=== PATIENT | male | born 1940 | race Caucasian/White ===

== ENCOUNTER → 2016-12-04 | Outpatient (CLI) | payer OTHER ==
[~2016-12-04] MED LIST: CLARITIN10 MG PO; DOXYCYCLINE100 M3 PO; LANTUS100 U/ML SC; MERREM IV1 GM IV; METFORMIN500 MG PO; NATURE'S BLEND F1 MG PO; ZITHROMAX Z PA250 MG PO; [UNRECOGNIZED DRUG - OTHER] PO
== END | disposition home or self-care (01) ==
LOC: LAB 14:33 → US 15:00
DX: N18.3 Chronic kidney disease, stage 3 (moderate) (principal)

== ENCOUNTER → 2016-12-06 | Outpatient (CLI) | payer OTHER | END | disposition home or self-care (01) | LOC: LAB 09:27 | DX: N18.3 Chronic kidney disease, stage 3 (moderate) (principal) ==

== ENCOUNTER → 2017-03-27 | Outpatient (CLI) | payer OTHER | END | disposition home or self-care (01) | LOC: RAD 10:25 | DX: J18.9 Pneumonia, unspecified organism (principal); R91.8 Other nonspecific abnormal finding of lung field; E11.9 Type 2 diabetes mellitus without complications; F17.200 Nicotine dependence, unspecified, uncomplicated ==

== ENCOUNTER → 2021-11-28 | Outpatient (CLI) | payer MEDICARE ==
[2021-11-28 16:19] LABS: CREATININE 1.88 mg/dL (0.70-1.30); POTASSIUM 4.8 mmol/L (3.5-5.1)
== END | disposition home or self-care (01) ==
LOC: LAB 15:18
PROVIDERS: ATTEND Internal Medicine
DX: U07.1 COVID-19 (principal)

== ENCOUNTER 2022-05-18 19:16 | Inpatient (IN) | payer MEDICARE ==
[2022-05-18] VITALS (7 sets, daily range): BP systolic 103–141; BP diastolic 54–76
[~2022-05-18] VITALS: Ht 175.2 cm; Wt 84.1 kg
[2022-05-18 19:37] LABS: BASO # 0.1 10*3/uL (0.0-0.1); EOS # 0.3 10*3/uL (0.0-0.4); EOS % 2.3 % (1.0-4.0); HEMATOCRIT 39.1 % (42.0-52.0); LYMPH # 1.9 10*3/uL (1.3-4.4); LYMPH % 15.6 % (27.0-41.0); MEAN CELL VOLUME 86.7 fl (80.0-94.0); MEAN CORPUSCULAR HGB 28.4 pg (27.0-31.0); MEAN CORPUSCULAR HGB CONC 32.7 g/dl (33.0-37.0); MEAN PLATELET VOLUME 10.5 fl (9.6-12.3); MONO # 1.1 10*3/uL (0.1-1.0); MONO % 8.8 % (3.0-9.0); NEUT # 8.9 10*3/uL (2.3-7.9); NEUT % 71.9 % (47.0-73.0); PLATELET COUNT AUTOMATED 178 10*3/uL (130-400); RED BLOOD COUNT 4.51 10*6/uL (4.50-5.90); RED CELL DISTRI WIDTH 13.9 % (0-14.5); WHITE BLOOD COUNT 12.4 10*3/uL (4.8-10.8)
[2022-05-18 19:54] LABS: POTASSIUM 4.2 mmol/L (3.4-5.1); TOTAL PROTEIN 6.7 gm/dL (6.0-8.0)
[2022-05-19] VITALS (19 sets, daily range): BP systolic 75–128; BP diastolic 38–72
[2022-05-19 06:07] LABS: BASO # 0.1 10*3/uL (0.0-0.1); BASO % 0.6 % (0.0-1.0); EOS # 0.1 10*3/uL (0.0-0.4); EOS % 0.7 % (1.0-4.0); LYMPH # 1.4 10*3/uL (1.3-4.4); LYMPH % 13.8 % (27.0-41.0); MEAN CELL VOLUME 87.5 fl (80.0-94.0); MEAN CORPUSCULAR HGB 28.1 pg (27.0-31.0); MEAN CORPUSCULAR HGB CONC 32.2 g/dl (33.0-37.0); MEAN PLATELET VOLUME 10.4 fl (9.6-12.3); MONO # 0.6 10*3/uL (0.1-1.0); MONO % 6.2 % (3.0-9.0); NEUT # 7.6 10*3/uL (2.3-7.9); NEUT % 78.2 % (47.0-73.0); PLATELET COUNT AUTOMATED 152 10*3/uL (130-400); RED BLOOD COUNT 4.23 10*6/uL (4.50-5.90); RED CELL DISTRI WIDTH 14.2 % (0-14.5); WHITE BLOOD COUNT 9.8 10*3/uL (4.8-10.8)
[2022-05-19 06:14] LABS: POTASSIUM 5.1 mmol/L (3.4-5.1); THYROID STIM HORMONE (HS) 0.998 uIU/ml (0.550-4.780); TOTAL PROTEIN 5.9 gm/dL (6.0-8.0)
[2022-05-19 07:42] LABS: VITAMIN D, 25-HYDROXY 28.1 ng/mL (30-100)
[2022-05-19] MEDS ORDERED: LYRICA50 M1 PO (09:16)
[2022-05-19] MEDS ORDERED: CITALOPRAM20 MG PO (09:17)
[2022-05-19] MEDS ORDERED: TRULICITY1.5 MG/0.5 SC (10:35)
[2022-05-19] MEDS ORDERED: LISINOPRIL5 MG PO (10:36)
[2022-05-20] VITALS: BP 99/57
[2022-05-20 03:54] VITALS: BP 106/50
[2022-05-20 05:54] LABS: POTASSIUM 4.9 mmol/L (3.4-5.1)
[2022-05-20 06:34] LABS: BASO % 0.4 % (0.0-1.0); EOS # 0.1 10*3/uL (0.0-0.4); EOS % 0.7 % (1.0-4.0); LYMPH # 1.6 10*3/uL (1.3-4.4); LYMPH % 15.2 % (27.0-41.0); MEAN CELL VOLUME 89.6 fl (80.0-94.0); MEAN CORPUSCULAR HGB 27.9 pg (27.0-31.0); MEAN CORPUSCULAR HGB CONC 31.1 g/dl (33.0-37.0); MEAN PLATELET VOLUME 11.2 fl (9.6-12.3); MONO # 1.2 10*3/uL (0.1-1.0); MONO % 10.8 % (3.0-9.0); NEUT # 7.8 10*3/uL (2.3-7.9); NEUT % 72.4 % (47.0-73.0); PLATELET COUNT AUTOMATED 139 10*3/uL (130-400); RED BLOOD COUNT 4.02 10*6/uL (4.50-5.90); RED CELL DISTRI WIDTH 14.4 % (0-14.5); WHITE BLOOD COUNT 10.7 10*3/uL (4.8-10.8)
[2022-05-20 08:00] VITALS: BP 117/57
[2022-05-20 12:00] VITALS: BP 99/56
== END 2022-05-20 12:13 | disposition short-term general hospital (02) | DRG 281 ==
LOC: ED 19:16 → 5E 22:08 → EDHOLD 22:08 → 5E 05-19 00:11 → EDHOLD 05-19 00:11 → ICCU 05-19 09:24 → 5E 05-19 15:37
PROVIDERS: Internal Medicine; Student in an Organized Health Care Education/Training Program; ADMIT Internal Medicine; ATTEND Internal Medicine
DX: I21.4 Non-ST elevation (NSTEMI) myocardial infarction (principal); F33.9 Major depressive disorder, recurrent, unspecified; N17.9 Acute kidney failure, unspecified; N18.9 Chronic kidney disease, unspecified; E11.42 Type 2 diabetes mellitus with diabetic polyneuropathy; Z66 Do not resuscitate; D72.829 Elevated white blood cell count, unspecified; D64.9 Anemia, unspecified; E66.9 Obesity, unspecified; E87.8 Other disorders of electrolyte and fluid balance, not elsewhere classified; E11.65 Type 2 diabetes mellitus with hyperglycemia; I95.9 Hypotension, unspecified; Z88.0 Allergy status to penicillin; Z88.8 Allergy status to other drugs, medicaments and biological substances; Z80.8 Family history of malignant neoplasm of other organs or systems; Z80.6 Family history of leukemia; Z68.27 Body mass index [BMI] 27.0-27.9, adult; E78.00 Pure hypercholesterolemia, unspecified

== ENCOUNTER → 2022-05-27 | Outpatient (CLI) | payer MEDICARE ==
[~2022-05-27] MED LIST changes: +CITALOPRAM20 MG PO; +LISINOPRIL5 MG PO; +LYRICA50 M1 PO; +TRULICITY1.5 MG/0.5 SC
[2022-05-27 13:16] LABS: FREE T4 1.17 ng/dl (0.89-1.76); POTASSIUM 4.5 mmol/L (3.4-5.1); THYROID STIM HORMONE (HS) 2.626 uIU/ml (0.550-4.780); TOTAL PROTEIN 5.9 gm/dL (6.0-8.0)
== END | disposition home or self-care (01) ==
LOC: LAB 12:09
PROVIDERS: ATTEND Internal Medicine
DX: E11.22 Type 2 diabetes mellitus with diabetic chronic kidney disease (principal); N18.31 Chronic kidney disease, stage 3a; E11.65 Type 2 diabetes mellitus with hyperglycemia; R91.1 Solitary pulmonary nodule; J43.9 Emphysema, unspecified; I25.5 Ischemic cardiomyopathy; R06.02 Shortness of breath

== ENCOUNTER → 2022-06-24 | Outpatient (CLI) | payer MEDICARE | END | disposition home or self-care (01) | LOC: US 00:15 | PROVIDERS: ATTEND Internal Medicine | DX: N18.31 Chronic kidney disease, stage 3a (principal); N32.89 Other specified disorders of bladder ==

== ENCOUNTER 2023-01-02 14:55 | Emergency (ER) | payer MEDICARE ==
[~2023-01-02] VITALS: Ht 175.2 cm; Wt 82.6 kg
[2023-01-02 15:41] LABS: BASO # 0.1 10*3/uL (0.0-0.1); BASO % 0.6 % (0.0-1.0); EOS % 0.3 % (1.0-4.0); HEMATOCRIT 32.9 % (42.0-52.0); LYMPH # 0.6 10*3/uL (1.3-4.4); LYMPH % 7.1 % (27.0-41.0); MEAN CELL VOLUME 90.4 fl (80.0-94.0); MEAN CORPUSCULAR HGB 29.7 pg (27.0-31.0); MEAN CORPUSCULAR HGB CONC 32.8 g/dl (33.0-37.0); MONO # 0.4 10*3/uL (0.1-1.0); MONO % 4.2 % (3.0-9.0); NEUT # 7.6 10*3/uL (2.3-7.9); PLATELET COUNT AUTOMATED 178 10*3/uL (130-400); RED BLOOD COUNT 3.64 10*6/uL (4.50-5.90); RED CELL DISTRI WIDTH 14.7 % (0-14.5); WHITE BLOOD COUNT 8.7 10*3/uL (4.8-10.8)
[2023-01-02 16:05] LABS: POTASSIUM 4.8 mmol/L (3.4-5.1); TOTAL PROTEIN 6.6 gm/dL (6.0-8.0)
[2023-01-02] MEDS ORDERED: MECLIZINE HYD12.5 MG PO (19:12)
[2023-01-02] MEDS ORDERED: PREDNISONE20 M1 PO (19:12)
== END 2023-01-02 19:25 | disposition home or self-care (01) ==
LOC: ED 14:55
PROVIDERS: Family Medicine
DX: H81.10 Benign paroxysmal vertigo, unspecified ear (principal); H93.3X3 Disorders of bilateral acoustic nerves; E11.9 Type 2 diabetes mellitus without complications; I25.2 Old myocardial infarction; J44.9 Chronic obstructive pulmonary disease, unspecified; Z88.0 Allergy status to penicillin; Z88.8 Allergy status to other drugs, medicaments and biological substances; Z87.891 Personal history of nicotine dependence

== ENCOUNTER 2023-06-24 16:21 | Emergency (ER) | payer MEDICARE ==
[~2023-06-24] VITALS: Ht 175.2 cm; Wt 80.3 kg
[~2023-06-24 16:21] MED LIST changes: +MECLIZINE HYD12.5 MG PO; +PREDNISONE20 M1 PO
[2023-06-24 17:41] LABS: BILIRUBIN Negative (Negative); BLOOD 2+ (Negative); CLARITY Turbid (Clear); COLOR Yellow (Yellow); GLUCOSE Negative (Negative); KETONE Trace (Negative); LEUKO ESTERASE 3+ (Negative); NITRITE Positive (Negative); PH 5.5 (4.5-8.0); SPECIFIC GRAVITY 1.015 (1.001-1.030)
[2023-06-24 17:47] LABS: WBC TNTC wbc/hpf (0-5)
[2023-06-24 18:03] LABS: POTASSIUM 4.5 mmol/L (3.4-5.1); TOTAL PROTEIN 6.4 gm/dL (6.0-8.0)
[2023-06-24 18:04] LABS: BASO # 0.1 10*3/uL (0.0-0.1); BASO % 0.5 % (0.0-1.0); EOS # 0.1 10*3/uL (0.0-0.4); EOS % 0.4 % (1.0-4.0); HEMATOCRIT 33.2 % (42.0-52.0); LYMPH # 1.6 10*3/uL (1.3-4.4); LYMPH % 9.2 % (27.0-41.0); MEAN CELL VOLUME 90.7 fl (80.0-94.0); MEAN CORPUSCULAR HGB 28.7 pg (27.0-31.0); MEAN CORPUSCULAR HGB CONC 31.6 g/dl (33.0-37.0); MEAN PLATELET VOLUME 10.4 fl (9.6-12.3); MONO # 1.3 10*3/uL (0.1-1.0); MONO % 7.2 % (3.0-9.0); NEUT # 14.5 10*3/uL (2.3-7.9); NEUT % 82.4 % (47.0-73.0); PLATELET COUNT AUTOMATED 151 10*3/uL (130-400); RED BLOOD COUNT 3.66 10*6/uL (4.50-5.90); RED CELL DISTRI WIDTH 14.7 % (0-14.5); WHITE BLOOD COUNT 17.6 10*3/uL (4.8-10.8)
[2023-06-24] MEDS ORDERED: SEPTDS PO (18:14)
[2023-06-24] MEDS ORDERED: Sulfamethoxazole/Trimethopri 1 TAB TAB PO ONE (18:15)
== END 2023-06-24 18:31 | disposition home or self-care (01) ==
LOC: ED 16:21
PROVIDERS: Physician Assistant Medical
DX: N39.0 Urinary tract infection, site not specified (principal); E11.9 Type 2 diabetes mellitus without complications; I25.2 Old myocardial infarction; J44.9 Chronic obstructive pulmonary disease, unspecified; Z88.0 Allergy status to penicillin; Z88.8 Allergy status to other drugs, medicaments and biological substances; Z98.890 Other specified postprocedural states; Z87.891 Personal history of nicotine dependence

== ENCOUNTER → 2023-07-15 | Outpatient (CLI) | payer MEDICARE ==
[~2023-07-15] MED LIST changes: +ALBUTEROL HFA 90MCG; +ASPIRIN ADULT L81 M1 PO; +ATORVASTATIN CA40 M1 PO; +BASAG SOL SQ; +CEFUROXIME AXE500 MG PO; +CITALOPRAM40 MG PO; +DEXCOM G7 SENS1 EACH MC; +FEROSUL325 M1 PO; +IMDUR SA30 MG PO; +METOPROLOL SUCC25 M2 PO; +PIOGLITAZONE HC30 MG PO; +PREGABALIN50 MG PO; +SEPTDS PO; +TRELEGY ELLIPT1 EACH INH; +ZESTRIL,PRINIVIL5 MG PO
== END | disposition home or self-care (01) ==
LOC: US 03:17
PROVIDERS: ATTEND Internal Medicine
DX: N32.89 Other specified disorders of bladder (principal); N30.01 Acute cystitis with hematuria; J90 Pleural effusion, not elsewhere classified; Z96.0 Presence of urogenital implants

== ENCOUNTER 2023-07-17 13:27 | Inpatient (IN) | payer MEDICARE ==
[~2023-07-17] VITALS: Ht 175.3 cm; Wt 86.6 kg
[~2023-07-17 13:27] MED LIST changes: -ALBUTEROL HFA 90MCG; -ASPIRIN ADULT L81 M1 PO; -ATORVASTATIN CA40 M1 PO; -BASAG SOL SQ; -CEFUROXIME AXE500 MG PO; -CITALOPRAM40 MG PO; -DEXCOM G7 SENS1 EACH MC; -FEROSUL325 M1 PO; -IMDUR SA30 MG PO; -METOPROLOL SUCC25 M2 PO; -PIOGLITAZONE HC30 MG PO; -PREGABALIN50 MG PO; -TRELEGY ELLIPT1 EACH INH; -ZESTRIL,PRINIVIL5 MG PO
[2023-07-17 13:50] VITALS: BP 121/51
[2023-07-17 14:07] LABS: BILIRUBIN Negative (Negative); BLOOD 2+ (Negative); CLARITY Turbid (Clear); COLOR Yellow (Yellow); GLUCOSE Negative (Negative); KETONE Negative (Negative); LEUKO ESTERASE 3+ (Negative); NITRITE Positive (Negative); PH 5.5 (4.5-8.0); UROBILINOGEN 0.2 E.U./dl (0.0-1.0)
[2023-07-17 14:18] LABS: BACTERIA 3+; WBC TNTC wbc/hpf (0-5)
[2023-07-17] MEDS ORDERED: Cefepime Hydrochloride 1 GM in SODIUM CHLORIDE 0.9% 50 ML IV ONE (14:29)
[2023-07-17 14:30] VITALS: BP 126/54
[2023-07-17 14:35] LABS: BASO # 0.1 10*3/uL (0.0-0.1); BASO % 0.8 % (0.0-1.0); EOS # 0.3 10*3/uL (0.0-0.4); EOS % 3.1 % (1.0-4.0); HEMATOCRIT 32.2 % (42.0-52.0); LYMPH # 1.7 10*3/uL (1.3-4.4); LYMPH % 19.9 % (27.0-41.0); MEAN CELL VOLUME 91.2 fl (80.0-94.0); MEAN CORPUSCULAR HGB 28.3 pg (27.0-31.0); MEAN CORPUSCULAR HGB CONC 31.1 g/dl (33.0-37.0); MEAN PLATELET VOLUME 10.2 fl (9.6-12.3); MONO # 0.9 10*3/uL (0.1-1.0); MONO % 10.3 % (3.0-9.0); NEUT # 5.4 10*3/uL (2.3-7.9); NEUT % 65.1 % (47.0-73.0); PLATELET COUNT AUTOMATED 191 10*3/uL (130-400); RED BLOOD COUNT 3.53 10*6/uL (4.50-5.90); RED CELL DISTRI WIDTH 15.8 % (0-14.5); WHITE BLOOD COUNT 8.3 10*3/uL (4.8-10.8)
[2023-07-17 14:59] LABS: POTASSIUM 4.3 mmol/L (3.4-5.1)
[2023-07-17] MEDS ORDERED: SODIUM CHLORIDE 0.9% 1,000 ML IV ONE (16:05)
[2023-07-17] MEDS ORDERED: PREGABALIN50 MG PO (16:21)
[2023-07-17] MEDS ORDERED: CEFUROXIME AXE500 MG PO (16:21)
[2023-07-17] MEDS ORDERED: BASAG SOL SQ (16:21)
[2023-07-17] MEDS ORDERED: DEXCOM G7 SENS1 EACH MC (16:22)
[2023-07-17] MEDS ORDERED: IMDUR SA30 MG PO (16:23)
[2023-07-17] MEDS ORDERED: METOPROLOL SUCC25 M2 PO (16:23)
[2023-07-17] MEDS ORDERED: ASPIRIN ADULT L81 M1 PO (16:23)
[2023-07-17] MEDS ORDERED: ATORVASTATIN CA40 M1 PO (16:24)
[2023-07-17] MEDS ORDERED: PIOGLITAZONE HC30 MG PO (16:24)
[2023-07-17] MEDS ORDERED: CITALOPRAM40 MG PO (16:25)
[2023-07-17] MEDS ORDERED: FEROSUL325 M1 PO (16:25)
[2023-07-17] MEDS ORDERED: ALBUTEROL HFA 90MCG (16:26)
[2023-07-17] MEDS ORDERED: ZESTRIL,PRINIVIL5 MG PO (16:29)
[2023-07-17] MEDS ORDERED: TRELEGY ELLIPT1 EACH INH (16:29)
[2023-07-17 16:50] VITALS: BP 125/57
[2023-07-17] MEDS ORDERED: FERROUS SULFATE 325 MG TAB PO ONE (16:55)
[2023-07-17] MEDS ORDERED: CITALOPRAM 20 MG TAB PO ONE (16:55)
[2023-07-17] MEDS ORDERED: Albuterol Sulf/Ipratropium 3 ML VIAL NEB SCH (17:00)
[2023-07-17] MEDS ORDERED: ATORVASTATIN CALCIUM 40 MG TABLET PO SCH (18:00)
[2023-07-17 20:00] VITALS: BP 129/71
[2023-07-17 20:10] VITALS: BP 129/71
[2023-07-17] MEDS ORDERED: METOPROLOL SUCCINATE XR 25 MG TAB PO SCH (22:00)
[2023-07-17] MEDS ORDERED: Insulin Glargine, Recombinan 1 UNIT/0.01 ML SC SCH (22:00)
[2023-07-17] MEDS ORDERED: HEPARIN SODIUM 5,000 UNIT/ML VIAL SC SCH (22:00)
[2023-07-17] MEDS ORDERED: PREGABALIN 50 MG CAP PO SCH (22:00)
[2023-07-18] VITALS: BP 124/57
[2023-07-18] MEDS ORDERED: Cefepime Hydrochloride 2 GM in SODIUM CHLORIDE 0.9% 50 ML IV SCH (06:00)
[2023-07-18 08:00] VITALS: BP 129/61
[2023-07-18] MEDS ORDERED: Pioglitazone Hydrochloride 15 MG TAB PO SCH (10:00)
[2023-07-18] MEDS ORDERED: LISINOPRIL 5 MG TAB PO SCH (10:00)
[2023-07-18] MEDS ORDERED: ISOSORBIDE MONONITRATE 30 MG TAB PO SCH (10:00)
[2023-07-18] MEDS ORDERED: ASPIRIN, CHEWABLE 81 MG TAB PO SCH (10:00)
[2023-07-18 12:00] VITALS: BP 124/54
[2023-07-18 16:00] VITALS: BP 98/50
[2023-07-18 16:21] LABS: URINE CREATININE RANDOM 71.71 mg/dL
[2023-07-18 20:00] VITALS: BP 98/52
[2023-07-19] VITALS: BP 98/45
[2023-07-19] MEDS ORDERED: Ceftriaxone Sodium 2 GM in SYRINGE INFUSION 20 ML IV SCH
[2023-07-19 06:14] LABS: POTASSIUM 4.3 mmol/L (3.4-5.1); TOTAL PROTEIN 5.5 gm/dL (6.0-8.0)
[2023-07-19 06:31] LABS: BASO # 0.1 10*3/uL (0.0-0.1); BASO % 0.8 % (0.0-1.0); EOS # 0.3 10*3/uL (0.0-0.4); EOS % 4.2 % (1.0-4.0); LYMPH # 1.8 10*3/uL (1.3-4.4); LYMPH % 24.3 % (27.0-41.0); MEAN CELL VOLUME 90.3 fl (80.0-94.0); MEAN PLATELET VOLUME 10.8 fl (9.6-12.3); MONO # 0.8 10*3/uL (0.1-1.0); MONO % 10.3 % (3.0-9.0); NEUT # 4.5 10*3/uL (2.3-7.9); NEUT % 59.6 % (47.0-73.0); PLATELET COUNT AUTOMATED 167 10*3/uL (130-400); RED BLOOD COUNT 3.21 10*6/uL (4.50-5.90); RED CELL DISTRI WIDTH 15.9 % (0-14.5); WHITE BLOOD COUNT 7.5 10*3/uL (4.8-10.8)
[2023-07-19 08:00] VITALS: BP 110/40
[2023-07-19] MEDS ORDERED: SODIUM CHLORIDE 0.9% 50 ML BAG IV ONE (09:01)
[2023-07-19 12:00] VITALS: BP 148/50
[2023-07-19 16:00] VITALS: BP 112/50
[2023-07-19] MEDS ORDERED: SODIUM CHLORIDE 0.9% 500 ML IV ONE (17:30)
[2023-07-19] MEDS ORDERED: [UNRECOGNIZED DRUG - OTHER] IV (18:38)
[2023-07-19 20:00] VITALS: BP 108/38
[2023-07-20] VITALS: BP 98/35
[2023-07-20 08:00] VITALS: BP 145/45
[2023-07-20 12:00] VITALS: BP 125/60
[2023-07-20 14:53] LABS: POTASSIUM 5.1 mmol/L (3.4-5.1)
[2023-07-20 16:00] VITALS: BP 106/41
[2023-07-20 20:00] VITALS: BP 131/57
[2023-07-21] VITALS: BP 104/42
[2023-07-21 06:44] LABS: BASO # 0.1 10*3/uL (0.0-0.1); BASO % 0.5 % (0.0-1.0); EOS # 0.5 10*3/uL (0.0-0.4); EOS % 5.1 % (1.0-4.0); HEMATOCRIT 28.2 % (42.0-52.0); LYMPH # 1.6 10*3/uL (1.3-4.4); LYMPH % 15.9 % (27.0-41.0); MEAN CORPUSCULAR HGB CONC 31.9 g/dl (33.0-37.0); MEAN PLATELET VOLUME 10.4 fl (9.6-12.3); MONO # 1.1 10*3/uL (0.1-1.0); NEUT # 6.8 10*3/uL (2.3-7.9); NEUT % 66.7 % (47.0-73.0); PLATELET COUNT AUTOMATED 146 10*3/uL (130-400); RED CELL DISTRI WIDTH 16.4 % (0-14.5); WHITE BLOOD COUNT 10.2 10*3/uL (4.8-10.8)
[2023-07-21 07:27] LABS: TOTAL PROTEIN 5.5 gm/dL (6.0-8.0)
[2023-07-21 08:00] VITALS: BP 110/80
[2023-07-21 12:00] VITALS: BP 104/56
[2023-07-21 16:00] VITALS: BP 106/45
[2023-07-21] MEDS ORDERED: VANCOMYCIN HCL 125 MG CAPSULE PO SCH (18:00)
[2023-07-21 20:00] VITALS: BP 132/54
[2023-07-22] VITALS: BP 103/45
[2023-07-22 08:00] VITALS: BP 114/46
[2023-07-22] MEDS ORDERED: VANCOMYCIN HCL125 MG PO (10:54)
[2023-07-22 12:00] VITALS: BP 150/45
[2023-07-22 13:31] LABS: POTASSIUM 4.8 mmol/L (3.4-5.1)
[2023-07-22] MEDS ORDERED: SODIUM CHLORIDE 0.9% 1,000 ML IV ONE (14:15)
[2023-07-22 16:00] VITALS: BP 113/49
[2023-07-22 20:00] VITALS: BP 125/54
[2023-07-23] VITALS: BP 114/47
[2023-07-23 08:00] VITALS: BP 123/85
[2023-07-23 12:00] VITALS: BP 111/54
[2023-07-23 12:27] LABS: POTASSIUM 4.5 mmol/L (3.4-5.1); TOTAL PROTEIN 5.8 gm/dL (6.0-8.0)
[2023-07-23] MEDS ORDERED: [UNRECOGNIZED DRUG - OTHER] IV (15:46)
== END 2023-07-23 20:01 | disposition home health service (06) | DRG 371 ==
LOC: ED 13:27 → 4E 16:06 → EDHOLD 16:06 → 5E 19:30 → 4E 20:00
PROVIDERS: Internal Medicine; Internal Medicine Nephrology; Nurse Practitioner; ADMIT Internal Medicine; ATTEND Internal Medicine
PROC: 02HV33Z Insertion of Infusion Device into Superior Vena Cava, Percutaneous Approach (ICD-10-PCS; principal; 2023-07-23)
PROC: B548ZZA Ultrasonography of Superior Vena Cava, Guidance (ICD-10-PCS; 2023-07-23)
DX: A04.72 Enterocolitis due to Clostridium difficile, not specified as recurrent (principal); N17.0 Acute kidney failure with tubular necrosis; N39.0 Urinary tract infection, site not specified; E44.0 Moderate protein-calorie malnutrition; Z16.24 Resistance to multiple antibiotics; N18.9 Chronic kidney disease, unspecified; E11.22 Type 2 diabetes mellitus with diabetic chronic kidney disease; B95.2 Enterococcus as the cause of diseases classified elsewhere; F32.A Depression, unspecified; E11.40 Type 2 diabetes mellitus with diabetic neuropathy, unspecified; E87.5 Hyperkalemia; Z79.4 Long term (current) use of insulin; Z88.0 Allergy status to penicillin; Z88.1 Allergy status to other antibiotic agents; Z79.899 Other long term (current) drug therapy; I25.2 Old myocardial infarction; Z87.891 Personal history of nicotine dependence; Z79.82 Long term (current) use of aspirin; Z80.8 Family history of malignant neoplasm of other organs or systems; Z68.28 Body mass index [BMI] 28.0-28.9, adult

== ENCOUNTER 2023-08-13 13:45 | Emergency (ER) | payer MEDICARE ==
[~2023-08-13] VITALS: Ht 175.2 cm; Wt 81.6 kg
[~2023-08-13 13:45] MED LIST changes: +ALBUTEROL HFA 90MCG; +ASPIRIN ADULT L81 M1 PO; +ATORVASTATIN CA40 M1 PO; +BASAG SOL SQ; +CEFUROXIME AXE500 MG PO; +CITALOPRAM40 MG PO; +DEXCOM G7 SENS1 EACH MC; +FEROSUL325 M1 PO; +IMDUR SA30 MG PO; +METOPROLOL SUCC25 M2 PO; +PIOGLITAZONE HC30 MG PO; +PREGABALIN50 MG PO; +TRELEGY ELLIPT1 EACH INH; +VANCOMYCIN HCL125 MG PO; +ZESTRIL,PRINIVIL5 MG PO; +[UNRECOGNIZED DRUG - OTHER] IV
[2023-08-13] MEDS ORDERED: SODIUM CHLORIDE 0.9% 1,000 ML IV ONE (14:25)
[2023-08-13] MEDS ORDERED: Meclizine Hydrochloride 25 MG TAB PO ONE (14:25)
[2023-08-13 14:35] LABS: BASO # 0.1 10*3/uL (0.0-0.1); BASO % 0.9 % (0.0-1.0); EOS # 0.3 10*3/uL (0.0-0.4); EOS % 3.2 % (1.0-4.0); HEMATOCRIT 31.1 % (42.0-52.0); LYMPH % 24.3 % (27.0-41.0); MEAN CELL VOLUME 89.9 fl (80.0-94.0); MEAN CORPUSCULAR HGB 28.9 pg (27.0-31.0); MEAN CORPUSCULAR HGB CONC 32.2 g/dl (33.0-37.0); MEAN PLATELET VOLUME 10.5 fl (9.6-12.3); MONO # 0.8 10*3/uL (0.1-1.0); NEUT % 61.1 % (47.0-73.0); PLATELET COUNT AUTOMATED 225 10*3/uL (130-400); RED BLOOD COUNT 3.46 10*6/uL (4.50-5.90); RED CELL DISTRI WIDTH 15.6 % (0-14.5); WHITE BLOOD COUNT 8.2 10*3/uL (4.8-10.8)
[2023-08-13 14:53] LABS: TOTAL PROTEIN 6.2 gm/dL (6.0-8.0)
[2023-08-13 15:37] LABS: BILIRUBIN Negative (Negative); BLOOD Trace-Lysed (Negative); CLARITY Clear (Clear); COLOR Yellow (Yellow); GLUCOSE Trace (Negative); KETONE Negative (Negative); LEUKO ESTERASE Negative (Negative); NITRITE Negative (Negative); PH 5.5 (4.5-8.0); SPECIFIC GRAVITY 1.015 (1.001-1.030); UROBILINOGEN 0.2 E.U./dl (0.0-1.0)
[2023-08-13 15:52] LABS: BACTERIA 2+; RBC 0-2 rbc/hpf (0-2)
[2023-08-13 15:53] LABS: EPITHELIAL CELLS 0-2
[2023-08-13] MEDS ORDERED: ANTIVERT25 M2 PO (16:17)
== END 2023-08-13 16:30 | disposition home or self-care (01) ==
LOC: ED 13:45
PROVIDERS: Nurse Practitioner Family
DX: R42 Dizziness and giddiness (principal); E11.22 Type 2 diabetes mellitus with diabetic chronic kidney disease; N18.9 Chronic kidney disease, unspecified; E11.40 Type 2 diabetes mellitus with diabetic neuropathy, unspecified; I25.2 Old myocardial infarction; E66.9 Obesity, unspecified; F32.A Depression, unspecified; Z87.891 Personal history of nicotine dependence; Z68.30 Body mass index [BMI] 30.0-30.9, adult; Z88.0 Allergy status to penicillin; Z88.1 Allergy status to other antibiotic agents; Z79.899 Other long term (current) drug therapy; Z79.2 Long term (current) use of antibiotics; Z79.82 Long term (current) use of aspirin; Z79.4 Long term (current) use of insulin

== ENCOUNTER 2023-08-28 21:33 | Inpatient (IN) | payer MEDICARE ==
[~2023-08-28] VITALS: Ht 177.8 cm; Wt 80.0 kg
[~2023-08-28 21:33] MED LIST changes: +ANTIVERT25 M2 PO
[2023-08-28 21:34] VITALS: BP 132/56
[2023-08-28] MEDS ORDERED: ACETAMINOPHEN 325 MG TAB PO ONE (21:45)
[2023-08-28 21:53] LABS: MEAN CELL VOLUME 91.9 fl (80.0-94.0); MEAN CORPUSCULAR HGB 29.2 pg (27.0-31.0); MEAN CORPUSCULAR HGB CONC 31.8 g/dl (33.0-37.0); MEAN PLATELET VOLUME 10.3 fl (9.6-12.3); PLATELET COUNT AUTOMATED 167 10*3/uL (130-400); RED BLOOD COUNT 3.59 10*6/uL (4.50-5.90); RED CELL DISTRI WIDTH 15.6 % (0-14.5); WHITE BLOOD COUNT 15.1 10*3/uL (4.8-10.8)
[2023-08-28 21:54] LABS: MANUAL DIFF REFLEX YES
[2023-08-28] MEDS ORDERED: SODIUM CHLORIDE 0.9% 1,000 ML IV SCH (22:00)
[2023-08-28 22:01] LABS: ACT PARTIAL THROMBO TIME 27.5 SECONDS (20.0-32.1)
[2023-08-28 22:09] LABS: ALKALINE PHOSPHATASE 70 U/L (46-116); BUN 27 mg/dl (9-23); CHLORIDE 107 mmol/L (98-107); CPK 65 U/L (34-171); ETHYL ALCOHOL < 3.0 mg/dl (<3); POTASSIUM 4.8 mmol/L (3.4-5.1); SGPT/ALT 8 U/L (5-49); TOTAL PROTEIN 6.1 gm/dL (6.0-8.0)
[2023-08-28 22:14] LABS: BASOPHILS 1 % (0-1); BURR CELLS FEW; OVALOCYTES FEW; PLATELET SUFFICIENCY NORMAL (NORMAL); TOTAL CELLS COUNTED 100 #CELLS
[2023-08-28] MEDS ORDERED: Ceftriaxone Sodium 1 GM/10 ML SYR IV ONE (22:40)
[2023-08-28] MEDS ORDERED: MAGNESIUM SULFATE 100 ML IV ONE (23:05)
[2023-08-28] MEDS ORDERED: SODIUM BICARBO650 MG PO (23:21)
[2023-08-28] MEDS ORDERED: MIDODRINE HCL5 M1 PO (23:24)
[2023-08-29] VITALS (12 sets, daily range): BP systolic 87–151; BP diastolic 42–68
[2023-08-29] MEDS ORDERED: Magnesium Hydroxide 30 ML UDC PO PRN (00:25)
[2023-08-29] MEDS ORDERED: ACETAMINOPHEN 325 MG TAB PO PRN (00:25)
[2023-08-29] MEDS ORDERED: Ondansetron Hydrochloride 4 MG/2 ML VIAL IV PRN (00:25)
[2023-08-29] MEDS ORDERED: SODIUM CHLORIDE 0.9% 1,000 ML IV ONE (00:35)
[2023-08-29] MEDS ORDERED: SODIUM CHLORIDE 0.9% 1,000 ML IV SCH ×2 (00:40→21:35)
[2023-08-29] MEDS ORDERED: Tamsulosin Hydrochloride 0.4 MG CAP PO SCH (00:50)
[2023-08-29] MEDS ORDERED: Albuterol Sulf/Ipratropium 3 ML VIAL NEB SCH (00:50)
[2023-08-29] MEDS ORDERED: DEXTROSE 10 % IN WATER 250 ML IV PRN (00:55)
[2023-08-29] MEDS ORDERED: MAGNESIUM SULFATE 50 ML IV ONE (00:55)
[2023-08-29] MEDS ORDERED: Meropenem 1 GM in SODIUM CHLORIDE 0.9% 100 ML IV SCH (01:31)
[2023-08-29] MEDS ORDERED: VANCOMYCIN HCL 1,500 MG in SODIUM CHLORIDE 0.9% 500 ML IV ONE (02:00)
[2023-08-29] MEDS ORDERED: Levalbuterol Hydrochloride 1.25 MG VIAL NEB PRN (02:40)
[2023-08-29] MEDS ORDERED: ACETAMINOPHEN 325 MG TAB PO ONE (02:45)
[2023-08-29 03:23] LABS: BILIRUBIN Negative (Negative); BLOOD 1+ (Negative); CLARITY Clear (Clear); COLOR Yellow (Yellow); GLUCOSE 1+ (Negative); KETONE Negative (Negative); LEUKO ESTERASE Negative (Negative); NITRITE Negative (Negative); SPECIFIC GRAVITY 1.015 (1.001-1.030); UROBILINOGEN 0.2 E.U./dl (0.0-1.0)
[2023-08-29 03:30] LABS: BACTERIA TRACE
[2023-08-29 03:31] LABS: URINE AMPHETAMINES Negative (1000ng/ml); URINE BARBITURATES Negative (200ng/ml); URINE BENZODIAZEPINES Negative (200ng/ml); URINE CANNABINOIDS (THC) Negative (50ng/ml); URINE COCAINE Negative (300ng/ml); URINE METHADONE Negative (300ng/ml); URINE OPIATES Positive (300ng/ml); URINE PHENCYCLIDINE Negative (25ng/ml)
[2023-08-29 06:58] LABS: BASO # 0.1 10*3/uL (0.0-0.1); BASO % 0.4 % (0.0-1.0); EOS % 0.1 % (1.0-4.0); HEMATOCRIT 28.9 % (42.0-52.0); LYMPH % 7.1 % (27.0-41.0); MEAN CELL VOLUME 92.3 fl (80.0-94.0); MEAN CORPUSCULAR HGB 29.4 pg (27.0-31.0); MEAN CORPUSCULAR HGB CONC 31.8 g/dl (33.0-37.0); MEAN PLATELET VOLUME 9.9 fl (9.6-12.3); NEUT % 85.1 % (47.0-73.0); PLATELET COUNT AUTOMATED 127 10*3/uL (130-400); RED BLOOD COUNT 3.13 10*6/uL (4.50-5.90); RED CELL DISTRI WIDTH 15.8 % (0-14.5); WHITE BLOOD COUNT 14.1 10*3/uL (4.8-10.8)
[2023-08-29] MEDS ORDERED: Vancomycin Hydrochloride 500 MG VIAL IV ONE (07:23)
[2023-08-29] MEDS ORDERED: SODIUM CHLORIDE 0.9% 50 ML BAG IV ONE (07:23)
[2023-08-29] MEDS ORDERED: [UNRECOGNIZED DRUG - OTHER] IV ONE (07:23)
[2023-08-29] MEDS ORDERED: Vancomycin Hydrochloride 1,000 MG VIAL IV ONE (07:23)
[2023-08-29] MEDS ORDERED: Meropenem 1 GM VIAL IV ONE (07:23)
[2023-08-29] MEDS ORDERED: INSULIN LISPRO 1 UNIT/0.01 ML SQ SCH (07:30)
[2023-08-29 07:52] LABS: ALKALINE PHOSPHATASE 58 U/L (46-116); BUN 25 mg/dl (9-23); CHLORIDE 112 mmol/L (98-107); POTASSIUM 3.9 mmol/L (3.4-5.1); TOTAL PROTEIN 5.1 gm/dL (6.0-8.0)
[2023-08-29 08:28] LABS: SGPT/ALT < 7 U/L (5-49)
[2023-08-29] MEDS ORDERED: ISOSORBIDE MONONITRATE 30 MG TAB PO SCH (10:00)
[2023-08-29] MEDS ORDERED: HEPARIN SODIUM 5,000 UNIT/ML VIAL SC SCH (10:00)
[2023-08-29] MEDS ORDERED: METOPROLOL SUCCINATE XR 25 MG TAB PO SCH (10:00)
[2023-08-29] MEDS ORDERED: CITALOPRAM 20 MG TAB PO SCH (10:00)
[2023-08-29] MEDS ORDERED: ASPIRIN, CHEWABLE 81 MG TAB PO SCH (10:00)
[2023-08-29] MEDS ORDERED: NYSTATIN 15 GM BOT T SCH (22:00)
[2023-08-29] MEDS ORDERED: ACETAMINOPHEN 325 MG/10.15 ML UDC PO SCH (22:00)
[2023-08-29] MEDS ORDERED: ATORVASTATIN CALCIUM 40 MG TABLET PO SCH (22:00)
[2023-08-29] MEDS ORDERED: VANCOMYCIN HCL 125 MG CAPSULE PO SCH (22:00)
[2023-08-29] MEDS ORDERED: LORazepam 0.5 MG TAB PO SCH (22:00)
[2023-08-30 00:13] VITALS: BP 129/42
[2023-08-30 06:51] LABS: BASO # 0.1 10*3/uL (0.0-0.1); BASO % 0.5 % (0.0-1.0); EOS # 0.2 10*3/uL (0.0-0.4); LYMPH # 1.2 10*3/uL (1.3-4.4); LYMPH % 11.7 % (27.0-41.0); MEAN CELL VOLUME 92.1 fl (80.0-94.0); MEAN CORPUSCULAR HGB 28.6 pg (27.0-31.0); MEAN CORPUSCULAR HGB CONC 31.1 g/dl (33.0-37.0); MONO # 0.7 10*3/uL (0.1-1.0); MONO % 6.6 % (3.0-9.0); NEUT # 8.4 10*3/uL (2.3-7.9); PLATELET COUNT AUTOMATED 113 10*3/uL (130-400); RED BLOOD COUNT 3.04 10*6/uL (4.50-5.90); RED CELL DISTRI WIDTH 15.9 % (0-14.5); WHITE BLOOD COUNT 10.6 10*3/uL (4.8-10.8)
[2023-08-30 07:16] LABS: POTASSIUM 4.2 mmol/L (3.4-5.1)
[2023-08-30 08:00] VITALS: BP 112/48
[2023-08-30 12:00] VITALS: BP 140/62
[2023-08-30 16:00] VITALS: BP 130/48
[2023-08-30] MEDS ORDERED: VANCOMYCIN/WATER FOR INJ (PEG) 250 ML IV SCH (16:00)
[2023-08-30 20:00] VITALS: BP 124/46
[2023-08-31] VITALS: BP 123/48
[2023-08-31 07:34] LABS: HEMATOCRIT 27.2 % (42.0-52.0); MEAN CELL VOLUME 90.4 fl (80.0-94.0); MEAN CORPUSCULAR HGB 28.9 pg (27.0-31.0); MEAN PLATELET VOLUME 11.4 fl (9.6-12.3); PLATELET COUNT AUTOMATED 129 10*3/uL (130-400); RED BLOOD COUNT 3.01 10*6/uL (4.50-5.90); RED CELL DISTRI WIDTH 15.8 % (0-14.5); WHITE BLOOD COUNT 9.1 10*3/uL (4.8-10.8)
[2023-08-31 07:35] LABS: MANUAL DIFF REFLEX YES
[2023-08-31 07:44] LABS: POTASSIUM 3.9 mmol/L (3.4-5.1); TOTAL PROTEIN 4.9 gm/dL (6.0-8.0)
[2023-08-31 08:00] VITALS: BP 134/63
[2023-08-31 08:12] LABS: PLATELET SUFFICIENCY LOW (NORMAL); TOTAL CELLS COUNTED 100 #CELLS
[2023-08-31 08:13] LABS: BURR CELLS FEW; ROULEAUX SLIGHT
[2023-08-31 12:00] VITALS: BP 107/74
[2023-08-31 20:00] VITALS: BP 131/58
[2023-08-31] MEDS ORDERED: ACETAMINOPHEN 325 MG TAB PO SCH (22:00)
[2023-09-01] VITALS: BP 149/54
[2023-09-01 08:00] VITALS: BP 139/88
[2023-09-01 11:52] LABS: BASO # 0.1 10*3/uL (0.0-0.1); BASO % 0.7 % (0.0-1.0); EOS # 0.5 10*3/uL (0.0-0.4); EOS % 6.4 % (1.0-4.0); HEMATOCRIT 27.7 % (42.0-52.0); LYMPH # 1.3 10*3/uL (1.3-4.4); LYMPH % 18.6 % (27.0-41.0); MEAN CELL VOLUME 92.6 fl (80.0-94.0); MEAN CORPUSCULAR HGB 29.1 pg (27.0-31.0); MEAN CORPUSCULAR HGB CONC 31.4 g/dl (33.0-37.0); MEAN PLATELET VOLUME 10.4 fl (9.6-12.3); MONO # 0.7 10*3/uL (0.1-1.0); MONO % 9.9 % (3.0-9.0); NEUT # 4.4 10*3/uL (2.3-7.9); NEUT % 62.3 % (47.0-73.0); PLATELET COUNT AUTOMATED 135 10*3/uL (130-400); RED BLOOD COUNT 2.99 10*6/uL (4.50-5.90); RED CELL DISTRI WIDTH 15.6 % (0-14.5)
[2023-09-01 12:00] VITALS: BP 121/72
[2023-09-01 12:33] LABS: TOTAL PROTEIN 5.1 gm/dL (6.0-8.0)
[2023-09-01 16:00] VITALS: BP 120/51
[2023-09-01] MEDS ORDERED: VANCOCIN HCL P125 MG PO (19:55)
[2023-09-01 20:00] VITALS: BP 132/52
[2023-09-02] VITALS: BP 106/50
[2023-09-02 08:00] VITALS: BP 153/60
[2023-09-02 12:00] VITALS: BP 122/50
[2023-09-02] MEDS ORDERED: TAMSULOSIN HCL0.4 MG PO (12:23)
== END 2023-09-02 15:03 | disposition home health service (06) | DRG 871 ==
LOC: ED 21:33 → EDHOLD 23:55 → 4E 23:55
PROVIDERS: Internal Medicine; Student in an Organized Health Care Education/Training Program; ADMIT Internal Medicine; ATTEND Internal Medicine
DX: A41.9 Sepsis, unspecified organism (principal); G93.41 Metabolic encephalopathy; N17.0 Acute kidney failure with tubular necrosis; E44.1 Mild protein-calorie malnutrition; M62.82 Rhabdomyolysis; N39.0 Urinary tract infection, site not specified; E87.20 Acidosis, unspecified; A04.72 Enterocolitis due to Clostridium difficile, not specified as recurrent; F33.41 Major depressive disorder, recurrent, in partial remission; H81.13 Benign paroxysmal vertigo, bilateral; E86.0 Dehydration; E83.42 Hypomagnesemia; N18.9 Chronic kidney disease, unspecified; E66.9 Obesity, unspecified; E11.22 Type 2 diabetes mellitus with diabetic chronic kidney disease; E11.65 Type 2 diabetes mellitus with hyperglycemia; D64.9 Anemia, unspecified; N18.32 Chronic kidney disease, stage 3b; R65.20 Severe sepsis without septic shock; Z79.899 Other long term (current) drug therapy; Z79.01 Long term (current) use of anticoagulants; Z79.2 Long term (current) use of antibiotics; I25.2 Old myocardial infarction; Z88.0 Allergy status to penicillin; Z88.8 Allergy status to other drugs, medicaments and biological substances; Z91.09 Other allergy status, other than to drugs and biological substances; Z87.891 Personal history of nicotine dependence; Z80.6 Family history of leukemia; Z80.8 Family history of malignant neoplasm of other organs or systems; Z79.84 Long term (current) use of oral hypoglycemic drugs; Z79.4 Long term (current) use of insulin; Z68.30 Body mass index [BMI] 30.0-30.9, adult

== ENCOUNTER → 2023-12-26 | Outpatient (CLI) | payer MEDICARE ==
[~2023-12-26] MED LIST changes: +MIDODRINE HCL5 M1 PO; +SODIUM BICARBO650 MG PO; +TAMSULOSIN HCL0.4 MG PO; +VANCOCIN HCL P125 MG PO
[2023-12-26 15:35] LABS: BASO # 0.1 10*3/uL (0.0-0.1); BASO % 0.6 % (0.0-1.0); EOS # 0.4 10*3/uL (0.0-0.4); EOS % 3.7 % (1.0-4.0); LYMPH # 2.2 10*3/uL (1.3-4.4); LYMPH % 19.7 % (27.0-41.0); MEAN CELL VOLUME 94.2 fl (80.0-94.0); MEAN CORPUSCULAR HGB 29.9 pg (27.0-31.0); MEAN CORPUSCULAR HGB CONC 31.8 g/dl (33.0-37.0); MEAN PLATELET VOLUME 9.8 fl (9.6-12.3); MONO # 1.1 10*3/uL (0.1-1.0); MONO % 9.8 % (3.0-9.0); NEUT # 7.3 10*3/uL (2.3-7.9); NEUT % 65.1 % (47.0-73.0); PLATELET COUNT AUTOMATED 179 10*3/uL (130-400); RED BLOOD COUNT 3.61 10*6/uL (4.50-5.90); RED CELL DISTRI WIDTH 14.4 % (0-14.5); WHITE BLOOD COUNT 11.1 10*3/uL (4.8-10.8)
== END | disposition home or self-care (01) ==
LOC: LAB 15:15
PROVIDERS: ATTEND Internal Medicine
DX: Z12.5 Encounter for screening for malignant neoplasm of prostate (principal); J44.1 Chronic obstructive pulmonary disease with (acute) exacerbation; J43.9 Emphysema, unspecified; J98.4 Other disorders of lung

== ENCOUNTER → 2024-01-13 | Outpatient (CLI) | payer MEDICARE | END | disposition home or self-care (01) | LOC: CT 09:58 | PROVIDERS: ATTEND Internal Medicine | DX: R51.9 Headache, unspecified (principal) ==

== ENCOUNTER → 2024-02-11 | Outpatient (CLI) | payer MEDICARE ==
[2024-02-11 11:59] LABS: BASO # 0.1 10*3/uL (0.0-0.1); BASO % 0.9 % (0.0-1.0); EOS # 0.4 10*3/uL (0.0-0.4); EOS % 3.9 % (1.0-4.0); HEMATOCRIT 35.5 % (42.0-52.0); MEAN CELL VOLUME 93.7 fl (80.0-94.0); MEAN CORPUSCULAR HGB 29.6 pg (27.0-31.0); MEAN CORPUSCULAR HGB CONC 31.5 g/dl (33.0-37.0); MEAN PLATELET VOLUME 10.7 fl (9.6-12.3); MONO % 10.2 % (3.0-9.0); NEUT % 60.3 % (47.0-73.0); PLATELET COUNT AUTOMATED 178 10*3/uL (130-400); RED BLOOD COUNT 3.79 10*6/uL (4.50-5.90); RED CELL DISTRI WIDTH 14.2 % (0-14.5)
[2024-02-11 12:12] LABS: BILIRUBIN Negative (Negative); BLOOD Trace-Lysed (Negative); CLARITY Clear (Clear); COLOR Yellow (Yellow); GLUCOSE Negative (Negative); KETONE Negative (Negative); LEUKO ESTERASE Negative (Negative); NITRITE Negative (Negative); PH 5.5 (4.5-8.0); UROBILINOGEN 0.2 E.U./dl (0.0-1.0)
[2024-02-11 12:28] LABS: URINE CREATININE RANDOM 107.44 mg/dL
[2024-02-11 12:34] LABS: POTASSIUM 5.3 mmol/L (3.4-5.1); TOTAL PROTEIN 6.9 gm/dL (6.0-8.0)
[2024-02-11 12:37] LABS: VITAMIN D, 25-HYDROXY 38.5 ng/mL (30-100)
[2024-02-11 12:38] LABS: WBC 0-2 wbc/hpf (0-5)
== END | disposition home or self-care (01) ==
LOC: LAB 11:22
PROVIDERS: ATTEND Internal Medicine Nephrology
DX: N18.32 Chronic kidney disease, stage 3b (principal); E55.9 Vitamin D deficiency, unspecified; Z79.899 Other long term (current) drug therapy

== ENCOUNTER → 2024-08-09 | Outpatient (CLI) | payer OTHER ==
[~2024-08-09] MED LIST changes: +ZITHROMAX250 MG PO
[2024-08-09 13:41] LABS: POTASSIUM 4.3 mmol/L (3.4-5.1)
== END | disposition home or self-care (01) ==
LOC: LAB 12:54
PROVIDERS: ATTEND Internal Medicine
DX: I12.9 Hypertensive chronic kidney disease with stage 1 through stage 4 chronic kidney disease, or unspecified chronic kidney disease (principal); N18.32 Chronic kidney disease, stage 3b; I25.5 Ischemic cardiomyopathy

== ENCOUNTER → 2024-10-13 | Outpatient (CLI) | payer OTHER | END | disposition home or self-care (01) | LOC: LAB 13:47 | PROVIDERS: ATTEND Internal Medicine | DX: R53.1 Weakness (principal) ==

== ENCOUNTER → 2024-10-27 | Outpatient (CLI) | payer OTHER ==
[~2024-10-27] MED LIST changes: +CYCLOBENZAPRINE10 MG PO; +VENTOLIN 02.5 MG/3 M INH; +VIBRA-TAB100 MG PO
[2024-10-27 09:26] LABS: VITAMIN D, 25-HYDROXY 69.7 ng/mL (30-100)
== END | disposition home or self-care (01) ==
LOC: US 10-26 10:30 → LAB 03:10 → US 08:30
PROVIDERS: ATTEND Internal Medicine Nephrology
DX: K80.20 Calculus of gallbladder without cholecystitis without obstruction (principal); K76.0 Fatty (change of) liver, not elsewhere classified; N30.01 Acute cystitis with hematuria; M89.9 Disorder of bone, unspecified

== ENCOUNTER 2024-12-10 16:31 | Inpatient (IN) | payer OTHER ==
[~2024-12-10] VITALS: Ht 175.3 cm; Wt 74.1 kg
[2024-12-10 16:37] VITALS: BP 115/59
[2024-12-10 17:28] LABS: BASO # 0.1 10*3/uL (0.0-0.1); BASO % 0.7 % (0.0-1.0); EOS # 0.3 10*3/uL (0.0-0.4); EOS % 3.3 % (1.0-4.0); MEAN CELL VOLUME 88.3 fl (80.0-94.0); MEAN CORPUSCULAR HGB 27.2 pg (27.0-31.0); MEAN PLATELET VOLUME 10.4 fl (9.6-12.3); MONO # 0.8 10*3/uL (0.1-1.0); MONO % 9.0 % (3.0-9.0); NEUT # 5.9 10*3/uL (2.3-7.9); NEUT % 68.5 % (47.0-73.0); NUCLEATED RED BLOOD CELL 0.0 % (0.0-0.0); NUCLEATED RED BLOOD CELL 0.0 10*3/uL (0.0-0.0); PLATELET COUNT AUTOMATED 168 10*3/uL (130-400); RED CELL DISTRI WIDTH 15.9 % (0-14.5)
[2024-12-10 17:34] LABS: BILIRUBIN 1+ (Negative); BLOOD 3+ (Negative); CLARITY Turbid (Clear); COLOR Red (Yellow); KETONE Negative (Negative); LEUKO ESTERASE 2+ (Negative); NITRITE Positive (Negative); PH 5.0 (4.5-8.0); SPECIFIC GRAVITY 1.010 (1.001-1.030); UROBILINOGEN 0.2 E.U./dl (0.0-1.0)
[2024-12-10 17:41] LABS: BACTERIA 2+; RBC TNTC rbc/hpf (0-2); WBC 21-30 wbc/hpf (0-5)
[2024-12-10 17:43] LABS: BUN 39.0 mg/dl (9-23)
[2024-12-10] MEDS ORDERED: LEVOFLOXACIN750 M2 PO (20:33)
[2024-12-10 20:39] VITALS: BP 137/76
[2024-12-10 21:17] VITALS: BP 154/72
[2024-12-10] MEDS ORDERED: ATORVASTATIN CALCIUM 40 MG TABLET PO SCH (22:00)
[2024-12-10] MEDS ORDERED: Cyclobenzaprine Hydrochlorid 10 MG TAB PO PRN (22:00)
[2024-12-10] MEDS ORDERED: SODIUM CHLORIDE 0.9% 1,000 ML IV ONE (22:20)
[2024-12-11] VITALS: BP 122/50
[2024-12-11 05:40] VITALS: BP 131/72
[2024-12-11] MEDS ORDERED: Midodrine Hydrochloride 5 MG TAB PO SCH (06:00)
[2024-12-11 08:00] VITALS: BP 126/56
[2024-12-11 08:32] LABS: BASO # 0.1 10*3/uL (0.0-0.1); BASO % 0.5 % (0.0-1.0); EOS # 0.3 10*3/uL (0.0-0.4); EOS % 2.5 % (1.0-4.0); MEAN CELL VOLUME 87.6 fl (80.0-94.0); MEAN CORPUSCULAR HGB 27.2 pg (27.0-31.0); MEAN PLATELET VOLUME 10.0 fl (9.6-12.3); MONO # 0.7 10*3/uL (0.1-1.0); MONO % 5.6 % (3.0-9.0); NEUT # 10.0 10*3/uL (2.3-7.9); NEUT % 84.7 % (47.0-73.0); NUCLEATED RED BLOOD CELL 0.0 % (0.0-0.0); NUCLEATED RED BLOOD CELL 0.0 10*3/uL (0.0-0.0); PLATELET COUNT AUTOMATED 170 10*3/uL (130-400); RED CELL DISTRI WIDTH 16.0 % (0-14.5)
[2024-12-11 08:57] LABS: BUN 37.0 mg/dl (9-23)
[2024-12-11] MEDS ORDERED: METOPROLOL SUCCINATE XR 25 MG TAB PO SCH (10:00)
[2024-12-11] MEDS ORDERED: FERROUS SULFATE 325 MG TAB PO SCH (10:00)
[2024-12-11] MEDS ORDERED: ISOSORBIDE MONONITRATE 30 MG TAB PO SCH (10:00)
[2024-12-11] MEDS ORDERED: PREGABALIN 50 MG CAP PO SCH (10:00)
[2024-12-11] MEDS ORDERED: CITALOPRAM 20 MG TAB PO SCH (10:00)
[2024-12-11 12:00] VITALS: BP 133/59
[2024-12-11 16:00] VITALS: BP 126/45
[2024-12-11] MEDS ORDERED: DOCUSATE SODIUM 100 MG CAP PO SCH (18:00)
[2024-12-11 20:00] VITALS: BP 105/49
[2024-12-11] MEDS ORDERED: Insulin Glargine, Recombinan 1 UNIT/0.01 ML SC SCH (22:00)
[2024-12-12] VITALS: BP 123/63
[2024-12-12 05:30] VITALS: BP 110/44
[2024-12-12 06:11] LABS: BASO # 0.0 10*3/uL (0.0-0.1); BASO % 0.3 % (0.0-1.0); EOS # 0.3 10*3/uL (0.0-0.4); EOS % 2.7 % (1.0-4.0); MEAN CELL VOLUME 87.6 fl (80.0-94.0); MEAN CORPUSCULAR HGB 27.6 pg (27.0-31.0); MEAN PLATELET VOLUME 10.8 fl (9.6-12.3); MONO # 1.0 10*3/uL (0.1-1.0); MONO % 8.9 % (3.0-9.0); NEUT # 8.5 10*3/uL (2.3-7.9); NEUT % 76.7 % (47.0-73.0); NUCLEATED RED BLOOD CELL 0.0 % (0.0-0.0); NUCLEATED RED BLOOD CELL 0.0 10*3/uL (0.0-0.0); PLATELET COUNT AUTOMATED 162 10*3/uL (130-400); RED CELL DISTRI WIDTH 16.0 % (0-14.5)
[2024-12-12 06:31] LABS: BUN 41.0 mg/dl (9-23); SGPT/ALT 9.0 U/L (5-49)
[2024-12-12 08:00] VITALS: BP 113/35
[2024-12-12 12:00] VITALS: BP 119/52
[2024-12-12 16:00] VITALS: BP 109/40
[2024-12-12 20:00] VITALS: BP 122/57
[2024-12-13] MEDS ORDERED: LEVOFLOXACIN750 M2 PO (02:25)
[2024-12-13 08:00] VITALS: BP 120/73
[2024-12-13 12:00] VITALS: BP 98/52
[2024-12-13 16:00] VITALS: BP 105/46
[2024-12-13 20:00] VITALS: BP 142/55
[2024-12-14] VITALS: BP 142/55
[2024-12-14 06:52] LABS: BASO # 0.0 10*3/uL (0.0-0.1); BASO % 0.6 % (0.0-1.0); EOS # 0.4 10*3/uL (0.0-0.4); EOS % 5.4 % (1.0-4.0); MEAN CELL VOLUME 86.1 fl (80.0-94.0); MEAN CORPUSCULAR HGB 27.5 pg (27.0-31.0); MEAN PLATELET VOLUME 10.0 fl (9.6-12.3); MONO # 0.9 10*3/uL (0.1-1.0); MONO % 12.6 % (3.0-9.0); NEUT # 4.8 10*3/uL (2.3-7.9); NEUT % 68.4 % (47.0-73.0); NUCLEATED RED BLOOD CELL 0.0 % (0.0-0.0); NUCLEATED RED BLOOD CELL 0.0 10*3/uL (0.0-0.0); PLATELET COUNT AUTOMATED 152 10*3/uL (130-400); RED CELL DISTRI WIDTH 16.3 % (0-14.5)
[2024-12-14 07:26] LABS: BUN 53 mg/dl (9-23)
[2024-12-14 07:33] LABS: SGPT/ALT < 7 U/L (5-49)
[2024-12-14 08:00] VITALS: BP 117/46
[2024-12-14] MEDS ORDERED: LEVOFLOXACIN 750 MG TAB PO SCH (10:00)
[2024-12-14 12:00] VITALS: BP 109/45
== END 2024-12-14 14:45 | disposition home or self-care (01) | DRG 690 ==
LOC: ED 16:31 → EDHOLD 19:22 → 5E 19:22
PROVIDERS: Internal Medicine Infectious Disease; Nurse Practitioner Family; ADMIT Internal Medicine; ATTEND Internal Medicine
DX: N39.0 Urinary tract infection, site not specified (principal); N17.9 Acute kidney failure, unspecified; I13.0 Hypertensive heart and chronic kidney disease with heart failure and stage 1 through stage 4 chronic kidney disease, or unspecified chronic kidney disease; N18.9 Chronic kidney disease, unspecified; E11.22 Type 2 diabetes mellitus with diabetic chronic kidney disease; J44.9 Chronic obstructive pulmonary disease, unspecified; I50.9 Heart failure, unspecified; F32.A Depression, unspecified; E66.9 Obesity, unspecified; I25.10 Atherosclerotic heart disease of native coronary artery without angina pectoris; D50.9 Iron deficiency anemia, unspecified; Z88.0 Allergy status to penicillin; Z88.8 Allergy status to other drugs, medicaments and biological substances; I25.2 Old myocardial infarction; Z87.891 Personal history of nicotine dependence; Z80.6 Family history of leukemia; Z80.8 Family history of malignant neoplasm of other organs or systems; Z79.899 Other long term (current) drug therapy; Z79.01 Long term (current) use of anticoagulants; Z79.2 Long term (current) use of antibiotics; Z68.24 Body mass index [BMI] 24.0-24.9, adult

== ENCOUNTER → 2025-02-11 | Outpatient (CLI) | payer OTHER ==
[~2025-02-11] MED LIST changes: +LEVOFLOXACIN750 M2 PO
[2025-02-11 12:03] LABS: BASO # 0.1 10*3/uL (0.0-0.1); BASO % 0.9 % (0.0-1.0); EOS # 0.4 10*3/uL (0.0-0.4); EOS % 4.0 % (1.0-4.0); MEAN CELL VOLUME 88.6 fl (80.0-94.0); MEAN CORPUSCULAR HGB 26.7 pg (27.0-31.0); MEAN PLATELET VOLUME 10.0 fl (9.6-12.3); MONO # 0.9 10*3/uL (0.1-1.0); MONO % 9.4 % (3.0-9.0); NEUT # 6.4 10*3/uL (2.3-7.9); NEUT % 68.4 % (47.0-73.0); NUCLEATED RED BLOOD CELL 0.0 % (0.0-0.0); NUCLEATED RED BLOOD CELL 0.0 10*3/uL (0.0-0.0); PLATELET COUNT AUTOMATED 230 10*3/uL (130-400); RED CELL DISTRI WIDTH 15.9 % (0-14.5)
[2025-02-11 12:42] LABS: BUN 38.0 mg/dl (9-23); SGPT/ALT 7.0 U/L (5-49)
== END | disposition home or self-care (01) ==
LOC: CT 11:00 → LAB 11:14
PROVIDERS: ATTEND Urology
DX: R31.9 Hematuria, unspecified (principal); R53.83 Other fatigue; J90 Pleural effusion, not elsewhere classified